=== PATIENT | male | born 1950 | race African-American/Black ===

== ENCOUNTER 2017-09-14 23:44 | Inpatient (IN) | payer OTHER ==
[~2017-09-14] VITALS: Ht 175.3 cm; Wt 83.0 kg
[2017-09-15 00:17] VITALS: Ht 175.3 cm; Wt 83.0 kg
[2017-09-15 00:46] LABS: BASOPHIL % 1.3 % (0-2); PLATELET COUNT 170 x10^3mcL (130-400)
[2017-09-15 00:53] LABS: RED CELL DISTRIBUTION WIDTH 18.6 % (11.5-14.5)
[2017-09-15 00:56] LABS: CREATININE SERUM 1.8 mg/dL (0.7-1.3); POTASSIUM SERUM 3.7 mmol/L (3.5-5.1)
[2017-09-15 01:01] LABS: BILIRUBIN TOTAL 1.4 mg/dL (0.20-1.00); TOTAL PROTEIN, SERUM 6.3 g/dL (6.4-8.2)
[2017-09-15 01:04] LABS: ALBUMIN 3.2 g/dL (3.4-5.0)
[2017-09-15 04:21] VITALS: BP 119/73
[2017-09-15 05:43] VITALS: BP 111/69
[2017-09-15 07:22] LABS: BASOPHIL % 0.4 % (0-2); PLATELET COUNT 162 x10^3mcL (130-400)
[2017-09-15 07:25] LABS: CALCIUM 9.2 mg/dL (8.5-10.1); CARBON DIOXIDE 26.6 mmol/L (21-32); CREATININE SERUM 1.8 mg/dL (0.7-1.3); POTASSIUM SERUM 3.6 mmol/L (3.5-5.1)
[2017-09-15 07:29] LABS: RED CELL DISTRIBUTION WIDTH 19.4 % (11.5-14.5)
[2017-09-15 09:17] VITALS: BP 107/57
[2017-09-15] MEDS ORDERED: ASPIR 8181 MG PO (14:25)
[2017-09-15] MEDS ORDERED: ALDACTONE25 MG PO (14:26)
[2017-09-15] MEDS ORDERED: CARVEDILOL3.125 M1 PO (14:27)
[2017-09-15] MEDS ORDERED: METFORMIN HCL500 MG PO (14:28)
[2017-09-15] MEDS ORDERED: FUROSEMIDE40 MG PO (14:29)
[2017-09-15] MEDS ORDERED: TRAMADOL HCL50 MG PO (14:35)
[2017-09-15 16:41] VITALS: BP 97/67
[2017-09-15 17:08] VITALS: BP 97/67
== END 2017-09-15 17:50 | disposition home or self-care (01) | DRG 193 ==
LOC: ED 23:44 → DU 09-15 02:07
PROVIDERS: Emergency Medicine; Internal Medicine Pulmonary Disease
DX: J18.9 Pneumonia, unspecified organism (principal); N17.0 Acute kidney failure with tubular necrosis; I11.0 Hypertensive heart disease with heart failure; I50.9 Heart failure, unspecified; E11.9 Type 2 diabetes mellitus without complications; E78.5 Hyperlipidemia, unspecified
CPT/HCPCS: 82962; 83880; 97110-GP; G0480; J0456; J1956; J2543; J7040; J7620